=== PATIENT | female | born 1990 | race African-American/Black ===

== ENCOUNTER 2016-09-08 08:57 | Inpatient (IN) | payer SELFPAY ==
--- NOTE | ~2016-09-08 | CO ---
Unit #: [id number] #: [id number] Patient: DEVANG VEGA [id number] [place], [place] [address] [id number] I MR#: [id number] NAME: DEVANG VEGA ROOM: 473 Age: 26 Sex: F Admission Date: 09/08/2016 : 1990 Attending Physician: Rasheed Elizondo M.D. Consultation Date: 09/08/2016 CONSULTATION REPORT REASON FOR CONSULTATION Acute diverticulitis. CONSULTING PHYSICIAN Emergency Room Physician at [facility]. HISTORY OF PRESENT ILLNESS Thank you very much for asking us see Ms. Vega. She is 26-year-old black female, who has a negative past medical history and negative past surgical history. She developed crampy and then worsening lower abdominal pain yesterday. She has had no diarrhea. No GI bleeding. No or pulmonary symptoms. She came to the emergency room for evaluation. CT scan of the abdomen and pelvis revealed evidence of acute diverticulitis and microperforation that was contained. No free air was present throughout the rest of the abdomen and no abscess was present. The patient is being seen at this time for further evaluation and treatment. ALLERGIES No known medical allergies. The patient states penicillin gives her yeast infection, but she has had it before and states she has had no allergic reaction. PAST MEDICAL HISTORY Negative. MEDICATIONS Lortab. PAST SURGICAL HISTORY None. FAMILY HISTORY Noncontributory. REVIEW OF SYSTEMS Negative except for above. IMMUNIZATION STATUS Unknown. PHYSICAL EXAMINATION GENERAL: Well-developed, well-nourished, black female, in no apparent distress. Awake, alert, and oriented x3. VITAL SIGNS: Temperature 98.6, pulse 84, respirations 16, blood pressure Unit #: [id number] #: [id number] Patient: DEVANG VEGA 132/70. NECK: Supple. No thyromegaly or adenopathy. BACK: No CVA or spinous tenderness. ABDOMEN: Flat and soft. Tender in the lower abdomen, but no rebound or peritoneal signs. Some guarding on right and left lower quadrant. EXTREMITIES: No calf tenderness. No erythema. DIAGNOSTIC STUDIES LABORATORY RESULTS: Reveal the patient to have a BMP that is normal. White count is 12.5, hemoglobin 13.7, hematocrit 42.1. Urinalysis was negative nitrites, negative leukocyte esterase. IMPRESSION A 26-year-old black female with acute diverticulitis with microperforation and no free air. We have explained to the patient that the above findings that we recommend n.p.o. except for ice chips and antibiotics intravenously. We will follow her clinically. If she worsens clinically on examination or elevated white count or fever, she may need operative intervention. Hopefully, we can allow this to resolve nonoperatively with IV antibiotics followed by oral antibiotics and a colonoscopy several weeks in the future. All of these have been explained to the patient in detail. She understands and requests to proceed with the current treatment plan. Dictated by... Kailey Eden/jessica TD: 09/09/2016 05:34 JOB #: [id number] CC: [facility] CONSULTATION REPORT Page 1 of 1 X Rasheed Elizondo MD X CONSULTATION REPORT
--- NOTE | ~2016-09-08 | CT2 ---
[facility] A Service of [facility] RADIOLOGY TEXT RESULTS PATIENT: DEVANG VEGA LOCATION: [facility] [id number] : [birth year] UNIT #: [id number] AGE: [address]: Rasheed Elizondo MD SEX: F ORDER DR: [id number] [facility] [address] [place], [place] [address] [id number] MR#: [id number] Acc #: [id number] NAME: DEVANG VEGA : 1990 SEX: F STUDY DATE/TIME: 09/08/2016 09:53 UNIT: JOSÉ MIGUEL ROOM: STUDY DESCRIPTION: CT Abd and Pelv W Cont Attending Physician: Darlene Rodriguez P.A.-C. Ordering Physician: Darlene Rodriguez P.A.-C. Primary Care Physician: Primary Care Physician No MEDICAL IMAGING REPORT This report is preliminary unless electronic signature is present EXAM CT abdomen and pelvis with contrast 09/08/2016 0953 hours HISTORY Right lower quadrant pain for 3 days with cramping pelvic pain since yesterday. COMPARISON None. TECHNIQUE Dynamic helical CT images were obtained from the lung bases through the pubic symphysis with intravenous contrast only. Sagittal and coronal reconstructions were performed. Contrast was Isovue-370 100 mL IV. Total exam DLP 1257 mGy-cm. This CT examination was performed with one or more of the following radiation dose reduction techniques: automatic exposure control, adjustment of mA and/or kV according to patient size, and iterative reconstruction. FINDINGS Images through the lung bases demonstrate minimal dependent atelectasis. There is linear density in the right middle lobe likely atelectasis or scar. There is no effusion. Images through the abdomen demonstrate a normal appearance to the liver, spleen, pancreas, gallbladder, bile ducts, adrenal glands and kidneys. There are no renal or ureteral calculi. The abdominal aorta is normal in caliber. There is no adenopathy. The stomach is contracted and unopacified but appears normal. There is no small bowel distension or small bowel wall thickening. The terminal ileum, cecum and appendix are normal. The colon is nondistended. There are a few diverticula of the distal descending colon and sigmoid colon STS. [facility] A Service of [facility] RADIOLOGY TEXT RESULTS PATIENT: DEVANG VEGA LOCATION: [place] [id number] : [birth year] UNIT #: [id number] AGE: [address]: Rasheed Elizondo MD SEX: F ORDER DR: with mild wall thickening suggested in the mid sigmoid colon just superior to the dome of the bladder. There is extraluminal free air around this loop which is moderate in quantity suggesting a localized perforation. There is no fluid, fluid collection or abscess. No free air is seen in the upper abdomen. There is moderate stool in the rectum with no rectal wall thickening. IMPRESSION 1. There is an abnormal segment of the mid sigmoid colon where diverticula are present. There is mild bowel wall thickening with extraluminal bubbles of air seen both anterior, posterior and superior to this loop of bowel suggesting a contained perforation. There is no free fluid, fluid collection or abscess seen. Findings most likely represent acute diverticulitis with contained perforation. No free air is seen in the upper abdomen. 2. Normal appendix. STAT * RESULT Dictated by... Serena Bledsoe M.D. THIS IS AN ELECTRONICALLY VERIFIED REPORT Serena Bledsoe M.D. at 09/08/2016 2:28 PM OLGA/tanisha TD: 09/08/2016 10:21 JOB #: [id number] MEDICAL IMAGING REPORT Page 1 of 1 COPY
--- NOTE | ~2016-09-08 | A ---
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 Encouraged limiting fiber intake in diet d/t acute diverticulitis. Pt reported eating packaged foods d/t work schedule. RD provided list of foods recommended and foods not recommended. Pt seemed disappointed in limiting whole grains, and raw fruits and vegetables in diet but was willing to comply. Pt verbalized understanding of topic, expect full compliance with diet when d/c'd. Pt had no diet questions at this time. Recommendations: 1. Advance diet as tolerated to low-fiber diet. 2. Encourage compliance with low-fiber diet. 3. Reconsult RD if further diet education is needed/requested. RD to remain available. Respectfully, Cheri Reina, Health And Physical Education Professor Aliya Pennington RD, LD Food and Nutritional Services [facility] cc: client file
--- NOTE | ~2016-09-08 | DS ---
Unit #: [id number] #: [id number] Patient: DEVANG VEGA [id number] [address] [address] [id number] I MR#: [id number] NAME: DEVANG VEGA ROOM: 473 Age: 26 Sex: F Admission Date: 09/08/2016 : 1990 Discharge Date: 09/11/2016 Attending Physician: Rasheed Elizondo M.D. Primary Care Physician: No Primary Care Physician DISCHARGE SUMMARY CONSULTATIONS None. ADMITTING DIAGNOSIS Severe abdominal pain. DISCHARGE DIAGNOSIS Acute diverticulitis with microperforation. BRIEF HOSPITAL COURSE This is a 26-year-old lady who presented with severe abdominal pain. She had imaging consistent with acute diverticulitis with a microperforation that was well contained. She responded to antibiotics, and her pain improved daily. She had a normal white count on hospital day #2 and was advanced to a low-residue diet. DISPOSITION Discharged to home. DISCHARGE DIET She is to be on a low-residue diet. MEDICATIONS She was also given prescriptions for Levaquin and Flagyl. FOLLOWUP I will have my office contact her to set up colonoscopy in a couple weeks. DISCHARGE INSTRUCTIONS She has been instructed to call if she has any fevers or worsening abdominal pain or any other concerns in the meantime. Dictated by... Nicanor Read III, M.D. VCL/martir TD: 09/12/2016 08:23 JOB #: [id number] Unit #: [id number] #: [id number] Patient: DEVANG VEGA DISCHARGE SUMMARY Page 1 of 1 X Nicanor Read III, MD DISCHARGE SUMMARY
[2016-09-08 08:45] LABS: URINE SOURCE CLEAN CATCH
[2016-09-08 08:56] LABS: URINE APPEARANCE CLOUDY; URINE BILIRUBIN NEG (NEG); URINE BLOOD TRACE (NEG); URINE COLOR YELLOW; URINE GLUCOSE NEG (NEG); URINE KETONE NEG (NEG); URINE LEUKOCYTE ESTERASE NEG (NEG); URINE NITRATE NEG (NEG); URINE PH 5.5 (5-8); URINE PROTEIN NEG (NEG); URINE SPECIFIC GRAVITY 1.023 (1.003-1.035)
[~2016-09-08 08:57] MED LIST: BACTRIM DS TABL1 TA1 PO
[2016-09-08 08:59] LABS: CULTURE INDICATED? YES; URBCS1 AUWI 25-50 /[HPF] (0-2); URINE BACTERIA AUWI 2+ (NEGATIVE); URINE SQUAMOUS EPITHELIAL CELL MOD /[HPF]
[2016-09-08 09:06] LABS: BASOPHIL# 0.1 X10e3 (0-0.3); BASOPHIL% 0.6 % (0-2.5); EOSINOPHIL# 0.1 X10e3 (0-0.7); EOSINOPHIL% 0.7 % (0.0-7.0); HEMATOCRIT 42.1 % (35.0-45.0); HEMOGLOBIN 13.7 gm/dL (12.0-16.0); LYMPHOCYTE# 3.1 X10e3 (1.0-3.5); MEAN CORPUSCULAR HEMOGLOBIN 29.5 PG (28-34); MEAN CORPUSCULAR HGB CONC 32.4 g/dL (30-36); MEAN PLATELET VOLUME 10.1 FL (6.5-11.5); MONOCYTE# 1.2 X10e3 (0-1.0); MONOCYTE% 9.6 % (3.0-12.0); NEUTROPHIL% 64.1 % (40-75); PLATELET COUNT 236 X10e3 (140-420); RED BLOOD COUNT 4.63 X10e (3.90-5.30); RED CELL DISTRIBUTION WIDTH 13.8 % (11.0-15.5); WHITE BLOOD COUNT 12.5 X10e3 (4.0-10.5)
[2016-09-08 09:10] LABS: DIFF IND NO
[2016-09-08 09:32] LABS: BUN/CREATININE RATIO 13.33; CALCIUM SERUM 8.7 mg/dL (8.4-10.2); CREATININE SERUM 0.9 mg/dL (0.6-1.4); GLOM FILT RATE Estimated 102.3 mL/min (>60)
[2016-09-08] MEDS ORDERED: NO MEDICATIONS (11:58)
[2016-09-09 03:05] LABS: HEMATOCRIT 38.3 % (35.0-45.0); HEMOGLOBIN 12.5 gm/dL (12.0-16.0); MEAN CELL VOLUME 91.8 FL (83-96); MEAN CORPUSCULAR HGB CONC 32.7 g/dL (30-36); MEAN PLATELET VOLUME 10.5 FL (6.5-11.5); RED BLOOD COUNT 4.17 X10e (3.90-5.30); RED CELL DISTRIBUTION WIDTH 13.4 % (11.0-15.5)
[2016-09-09 03:25] LABS: CALCIUM SERUM 7.7 mg/dL (8.4-10.2); GLOM FILT RATE Estimated 90.1 mL/min (>60); POTASSIUM 3.8 mmol/L (3.5-5.1)
[2016-09-10 01:07] LABS: CHLAMYDIA TRACH Not Detected (Not Detected); N GONOR Not Detected (Not Detected)
[2016-09-10 03:48] LABS: BASOPHIL% 0.4 % (0-2.5); DIFF IND NO; EOSINOPHIL# 0.2 X10e3 (0-0.7); EOSINOPHIL% 2.2 % (0.0-7.0); HEMATOCRIT 36.1 % (35.0-45.0); LYMPHOCYTE# 3.2 X10e3 (1.0-3.5); LYMPHOCYTE% 31.9 % (17.0-45.0); MEAN CORPUSCULAR HEMOGLOBIN 30.5 PG (28-34); MEAN CORPUSCULAR HGB CONC 33.2 g/dL (30-36); MEAN PLATELET VOLUME 10.3 FL (6.5-11.5); MONOCYTE# 1.1 X10e3 (0-1.0); MONOCYTE% 10.8 % (3.0-12.0); NEUTROPHIL# 5.4 X10e3 (1.5-7.1); NEUTROPHIL% 54.7 % (40-75); PLATELET COUNT 185 X10e3 (140-420); RED BLOOD COUNT 3.92 X10e (3.90-5.30); RED CELL DISTRIBUTION WIDTH 12.9 % (11.0-15.5)
[2016-09-10 04:15] LABS: BUN/CREATININE RATIO 7.77; CALCIUM SERUM 8.1 mg/dL (8.4-10.2); CREATININE SERUM 0.9 mg/dL (0.6-1.4); GLOM FILT RATE Estimated 102.3 mL/min (>60); POTASSIUM 3.8 mmol/L (3.5-5.1)
[2016-09-11] MEDS ORDERED: FLAGYL PO (09:43)
[2016-09-11] MEDS ORDERED: LEVAQUIN PO (09:43)
[2016-09-11] MEDS ORDERED: ACETAMINOPHEN325 MG PO (09:44)
== END 2016-09-11 10:05 | disposition home or self-care (01) | DRG 392 ==
LOC: CED 08:57 → CEDOF 11:35 → C4C 18:41
PROVIDERS: Physician Assistant; Surgery
DX: K57.20 Diverticulitis of large intestine with perforation and abscess without bleeding (principal); Z87.891 Personal history of nicotine dependence
CPT/HCPCS: 36415; 74177; 80048; 80202; 81003; 84703; 85025; 85027; 87086; 87491; 87591; 87808; 87905; 96374; 96375; 99285; J1650; J1885; J2270; J2405; J2543; J3370; Q9967